=== PATIENT | female | born 1970 | race Caucasian/White ===

== ENCOUNTER → 2016-06-30 | Outpatient (CLI) | payer OTHER ==
--- NOTE | 2016-06-30 10:46 | DIAGNOSTIC IMAGING REPORT ---
NECK ULTRASOUND HISTORY: Right-sided neck mass. COMPARISON: None. FINDINGS: There is a hypoechoic 2.8 x 1.8 x 1.2 cm lesion within the right parotid gland. This demonstrates internal color flow and is consistent with a mass. Adjacent to this lesion there is a smaller 7 mm hypoechoic nodule which appears to demonstrate a fatty hilum. This likely represents a small lymph node. IMPRESSION: A 2.8 x 1.8 x 1.2 cm hypoechoic mass within the right parotid gland. Surgical excision is recommended. This favors a pleomorphic adenoma. Electronically signed by: Rich Smith M.D. 06/30/2016 10:44 AM Dictated Date/Time: 06/30/2016 10:43 AM
== END | disposition home or self-care (01) ==
LOC: C.ULTR 09:42
PROVIDERS: ATTEND Nurse Practitioner Family
DX: R22.1 Localized swelling, mass and lump, neck (principal)

== ENCOUNTER → 2016-07-17 | Outpatient (CLI) | payer OTHER ==
[~2016-07-17] MED LIST: OPTIRAY 320 IV PRN
--- NOTE | 2016-07-17 15:39 | DIAGNOSTIC IMAGING REPORT ---
CT soft tissue neck SOFT TISSUE NECK COMBO CLINICAL HISTORY: R22.0 Mass of parotid gland RIGHT PAROTID parotid lesion TECHNIQUE: Pre and postcontrast transaxial acquisition. Multiple axial reformatted images. COMPARISON STUDY: Ultrasound dated 06/30/2016 FINDINGS: Slightly hyperdense 1.5 x 1.4 X 2.2 cm nodular density posterior inferior aspect right parotid gland. No evidence for associated calcification. This shows moderate heterogeneous postcontrast enhancement. Small 6 mm additional nodule immediately adjacent to the parotid possibly representing the lymph node previously described. Several smaller sub-6 mm nodes are identified adjacent to the right parotid. Significant adenopathy, however is not appreciated. Structures of the soft tissue neck demonstrates the submandibular glands to be unremarkable. There are symmetric. Airway including glottic and subglottic regions is unremarkable. Epiglottis is normal. There is no significant lower cervical adenopathy. IMPRESSION: 1. 2.2 x 1.5 x 1.4 cm enhancing nodule within the central substance of the right parotid gland. This is partially exophytic with several small sub-6 mm surrounding nodes. 2. Diagnostic considerations must include a pleomorphic adenoma versus true neoplastic process. 3. Surgical excision is again recommended. Electronically signed by: Moise Lima M.D. 07/17/2016 3:37 PM Dictated Date/Time: 07/17/2016 3:26 PM
== END | disposition home or self-care (01) ==
LOC: C.CTS 14:40
PROVIDERS: ATTEND Hospitalist
DX: R22.0 Localized swelling, mass and lump, head (principal)

== ENCOUNTER → 2016-07-26 | Outpatient (CLI) | payer OTHER ==
--- NOTE | 2016-07-26 11:47 | Discharge Instructions ---
Discharge Instructions Procedure Procedure Date: Jul 26, 2016. Reason for visit: Mass Parotid Gland. Discharge Discharge Date: Jul 26, 2016. Discharge Diagnosis: s/p right parotid mass FNA Instructions Activity Recommendations: No limitations Return to School/Work: no limitations Recommended Home Diet: No Limitations Provider Instructions: ACTIVITY RECOMMENDATIONS: * Rest today. * Resume regular activity in one day. MEDICATIONS: * May take Tylenol or Ibuprofen as needed for pain. DIET: * Resume previous diet. SPECIAL CARE INSTRUCTIONS: Call your doctor if: * Temperature above 101 degrees F. * Pain not relieved by pain medicine ordered. * Increased drainage or redness from incision. * Notify your doctor with any questions or concerns. Call your doctor or go to the nearest Emergency Department if you experience: * Increased chest pain or shortness of breath. FOLLOW UP VISIT: Follow-up with Referring Physician as scheduled. Allergies Coded Allergies: Penicillins (Verified Allergy, Unknown, 03/18/15) Quinolones (Verified Allergy, Unknown, 03/18/15) ITCHING,SWELLING [place] Recommendations: Call your doctor if: * Temperature above 101 degrees * Pain not relieved by pain medicine ordered * There is increased drainage or redness from any incision * You have any unanswered questions or concerns. Your Doctors Instructions noted above were prepared by provider Reddy Brown. Patient Signature Section: Patient Instructions Signature Page Dominique Quinonez Patient (or Guardian) Signature/Date: I have read and understand the instructions given to me by my caregivers. Caregiver/RN/Doctor Signature/Date: The above-named patient and/or guardian has received patient instructions on this date. + Original Patient Signature Page (only) stays with chart. Please make copy for patient.
--- NOTE | 2016-07-26 12:12 | DIAGNOSTIC IMAGING REPORT ---
ULTRASOUND GUIDED FINE NEEDLE ASPIRATION OF RIGHT PAROTID GLAND MASS CLINICAL HISTORY: Right parotid gland mass. COMPARISON STUDY: Carotid ultrasound June 30, [address] July 17, 2016. PROCEDURE: Sonography of the right parotid gland demonstrated the 2.8 cm hypoechoic lesion within the right parotid gland. This was targeted for fine needle aspiration. The procedure, risks and benefits were discussed with the patient and informed written consent was obtained. The procedure was performed by Dr. Brown following a timeout. Skin overlying the right parotid gland was prepped and draped in sterile fashion and local anesthesia was achieved with 1% lidocaine. Under direct ultrasound guidance, 3 25-gauge fine needle aspirations of the right parotid mass were performed. The samples were deemed preliminarily adequate by pathology. The patient tolerated the procedure well and no immediate complications were evident. IMPRESSION: Ultrasound guided fine needle aspiration of right parotid gland mass. Electronically signed by: Reddy Brown M.D. 07/26/2016 12:11 PM Dictated Date/Time: 07/26/2016 12:09 PM
== END | disposition home or self-care (01) ==
LOC: C.ULTR 10:56
PROVIDERS: ATTEND Hospitalist
DX: R22.0 Localized swelling, mass and lump, head (principal)

== ENCOUNTER → 2016-12-20 | Outpatient (CLI) | payer OTHER ==
[2016-12-20 17:29] LABS: ISTAT CREATININE 0.6 mg/dl (0.6-1.3); ISTAT HEMOGLOBIN 14.6 g/dl (12.0-16.0); ISTAT IONIZED CALCIUM 1.12 mmol/l (1.12-1.32)
--- NOTE | 2016-12-20 17:57 | DIAGNOSTIC IMAGING REPORT ---
CT ANGIOGRAPHY OF THE CHEST, PULMONARY EMBOLUS PROTOCOL CLINICAL HISTORY: Left posterior chest pain. COMPARISON STUDY: Chest CT March 18, 2015. TECHNIQUE: Following IV administration of 93 mL of Optiray-320, helical axial images of the chest were obtained utilizing the pulmonary embolus protocol. Maximal intensity projections and sagittal and coronal reformats were viewed on an independent 3D workstation. IV contrast was administered without complication. CT DOSE: 448.61 mGycm FINDINGS: No pulmonary emboli are identified. There is no evidence of thoracic aortic dissection. The size of the heart is normal. There is no pericardial effusion. No enlarged axillary, mediastinal or hilar lymph nodes are present. There is a moderate sized hiatal hernia. Central airways are patent. There is no consolidation. Lingular opacity reflects atelectasis. There is no significant abnormality of the bony thorax. Fatty infiltration of the liver is noted. IMPRESSION: 1. No pulmonary emboli identified. 2. No acute intrathoracic findings. 3. Moderate sized hiatal hernia. 4. Fatty liver. Electronically signed by: Reddy Brown M.D. 12/20/2016 5:56 PM Dictated Date/Time: 12/20/2016 5:46 PM
== END | disposition home or self-care (01) ==
LOC: C.CTS 16:38
PROVIDERS: ATTEND Nurse Practitioner
DX: R07.1 Chest pain on breathing (principal)

== ENCOUNTER → 2016-12-20 | Outpatient (CLI) | payer OTHER ==
[2016-12-20 17:46] LABS: BASO % 0.6 %; BASO ABS # 0.06 K/uL (0-0.2); COMPLETE YES; EOS % 2.7 %; HEMATOCRIT 41.8 % (37-47); IG% 0.3 %; LYMPH % 32.3 %; LYMPH ABS # 3.14 K/uL (1.2-3.4); MEAN CELL VOLUME 94.6 fL (80-100); MEAN CORPUSCULAR HGB CONC 34.9 g/dl (32-36); MEAN PLATELET VOLUME 11.6 fL (7.4-10.4); MONO % 7.8 %; NEUT % 56.3 %; PLATELET COUNT 212 K/uL (130-400); RED BLOOD COUNT 4.42 M/uL (4.2-5.4); WHITE BLOOD COUNT 9.71 K/uL (4.8-10.8)
[2016-12-20 17:57] LABS: ALT/SGPT 47 U/L (12-78); BLOOD UREA NITROGEN 10 mg/dl (7-18); BUN/CREATININE RATIO 13.8 (10-20); CALCIUM 8.7 mg/dl (8.5-10.1); CARBON DIOXIDE 25 mmol/L (21-32); CHLORIDE 107 mmol/L (98-107); CREATININE 0.71 mg/dl (0.60-1.20); GLUCOSE 85 mg/dl (70-99); POTASSIUM 3.7 mmol/L (3.5-5.1); SODIUM 139 mmol/L (136-145)
[2016-12-20 18:03] LABS: ALB/GLOB RATIO 1.1 (0.9-2); ALKALINE PHOSPHATASE 62 U/L (45-117); AST/SGOT 27 U/L (15-37)
[2016-12-20 18:09] LABS: CHOLESTEROL/HDL RATIO 3.7; THYROID STIMULATING HORMONE 2.44 uIu/ml (0.300-4.500)
[2016-12-21 07:36] LABS: ESTIMATED AVERAGE GLUCOSE 105 mg/dl; HA1C FLAG Normal (Normal)
--- NOTE | 2016-12-26 08:52 | CODING QUERY MEDICAL NECESSITY ---
SUPPORTING DIAGNOSIS NEEDED A supporting diagnosis is required for the test/procedure performed on this patient in order for us to be reimbursed by the patient's insurance. Please provide a supporting diagnosis for the following test/procedure listed below next to the test name along with your signature. *If there is no additional diagnosis for this patient that would support the following test/procedure please document that below next to the test/procedure. Test(s)/Procedure(s) that require a supporting diagnosis: * HEMOGLOBIN A1C DIAGNOSIS: Provider Signature: Date: Thank you Sarah Bill [facility] [employer] Once completed, please kindly fax back to [phone] For questions please call [phone]
== END | disposition home or self-care (01) ==
LOC: C.LABPVFM 15:47
PROVIDERS: ATTEND Nurse Practitioner
DX: F41.9 Anxiety disorder, unspecified (principal); I10 Essential (primary) hypertension; R21 Rash and other nonspecific skin eruption; R07.1 Chest pain on breathing

== ENCOUNTER → 2017-02-09 | Outpatient (CLI) | payer OTHER ==
--- NOTE | 2017-02-09 16:16 | DIAGNOSTIC IMAGING REPORT ---
LEFT ANKLE 3 VIEWS HISTORY: Left ankle pain. COMPARISON: None. FINDINGS: There is no fracture or dislocation. Mild lateral soft tissue swelling. Tiny ossific density dorsal to the anterior talus is consistent with an old avulsion injury. No radiopaque foreign bodies. IMPRESSION: No fractures. Electronically signed by: Rich Smith M.D. 02/09/2017 4:14 PM Dictated Date/Time: 02/09/2017 4:13 PM
== END | disposition home or self-care (01) ==
LOC: C.RADPV 15:51
PROVIDERS: ATTEND Nurse Practitioner Family
DX: M25.572 Pain in left ankle and joints of left foot (principal)

== ENCOUNTER 2017-03-30 10:13 | Emergency (ER) | payer OTHER ==
[~2017-03-30] VITALS: Ht 157.5 cm; Wt 95.7 kg
[2017-03-30 10:17] VITALS: TEMP 37; Ht 157.5 cm; Wt 95.7 kg
[2017-03-30] MEDS ORDERED: LISI-725 PO (10:34)
[2017-03-30 12:10] VITALS: BP 136/90; PULSE 76; O2SAT 100
[2017-03-30 12:28] LABS: HEPATITIS B AB NEG
--- NOTE | 2017-03-30 20:00 | EMERGENCY ROOM VISIT NOTE ---
ED Visit Note First contact with patient: 10:53 Chief Complaint: I pricked my finger with a needle. History of Present Illness: Ms. Quinonez is a 46-year-old white female who ambulates into the ED complaining of a lancet injury to the left index finger. 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 She picked up a bag and was stuck with a diabetic lancet for glucose testing over the distal phalanx of the index finger. She reports blood was drawn and the lancet was stuck in the finger. She remove a lancet including her wound with soap and water. She also reports she control bleeding. 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 She reports she contacted her family doctor who referred her to the ED for testing. Currently she reports she is not having any symptoms. She has not taken any medications prior to arrival at the hospital. She denies any finger weakness/ numbness/tingling, recurrent bleeding. Review of Systems: As noted above in history of present illness. Past Medical History: Hypertension, status post cholecystectomy and appendectomy. Current Medications: Zestril. Allergies to Medications: Ciprofloxacin, penicillin. Social History: Patient is currently employed; she feels safe in her home environment; she admits to tobacco and alcohol use. Tetanus Immunization Status: Patient reports a questionable but she believes it' s less than 10 years; she would follow-up with her primary care for this information. Physical Examination: Vital Signs: Date Time Temp Pulse Resp B/P (MAP) Pulse Ox O2 Delivery O2 Flow Rate FiO2 03/30/17 12:10 76 16 136/90 100 03/30/17 10:17 37.0 71 16 134/85 99 Room Air GENERAL: 46-year-old year-old female in no acute distress, nontoxic-appearing, afebrile and hemodynamically stable. NEUROLOGICAL: Awake, alert and oriented to person, place and time. Answering questions appropriately and following commands. SKIN: Warm, dry and pink. Left Index Finger: No observable soft tissue injury was noted. No bleeding over the distal phalanx. LEFT INDEX FINGER: No gross bony deformity. No tenderness throughout the finger. Able to flex and extend at MCP, PIP and DIP joint. Throughout the finger the skin was warm and pink and capillary refill is brisk. She was able to distinguish light sensations through all dermatomes of the finger. ED Course: Patient is assessed as noted above. Patient's medication list was reviewed. Patient was counseled on hepatitis and HIV testing. Blood work was drawn for hepatitis B, hepatitis C and HIV testing. Patient was educated about today's findings and instructed on her treatment plan ; she verbalizes understanding and agreement with this plan. Clinical Impression: Work-related blood exposure. Left index finger lancet stick. Disposition: Patient discharged home in stable condition; prior to departure she was reassessed and remained pain and symptom-free. Plan: Patient was educated on wound care and signs of infection. Patient's testing results due to question Workmen's Compensation or he was furred to her primary care provider for her to follow-up with. Patient was encouraged return ED for any signs of infection or any new/ concerning symptoms.
== END 2017-03-30 12:11 | disposition home or self-care (01) ==
LOC: C.EDB 10:14 → C.EDD 12:11
DX: S61.238A Puncture wound without foreign body of other finger without damage to nail, initial encounter (principal); W46.1XXA Contact with contaminated hypodermic needle, initial encounter; X58.XXXA Exposure to other specified factors, initial encounter; Y99.0 Civilian activity done for income or pay